=== PATIENT | female | born 1945 | race Caucasian/White ===

== ENCOUNTER 2016-08-29 12:53 | Day surgery (SDC) | payer MEDICARE ==
[~2016-08-29] VITALS: Ht 165.1 cm; Wt 74.8 kg
[~2016-08-29 12:53] MED LIST: ALAVERT10 MG OR; ALBUTEROL S2.5 MG/.5; AMLOD/BENAZP1 CA3 PO; AMOX/K CLAV875 M1 PO; AMOXICILLIN/CL875 MG PO; AMOXICILLIN875 MG OR; ANTI-FUNGAL12 TOP; ASPIRIN 81 LOW81 MG PO; AUGMENTIN875TAB OR; BACLOFEN10 MG PO; BENZONATATE200 MG PO; CARAFATE1 GM PO; CIPROFLOXACN500 MG PO; DIPHENHYDRAM25 M4 PO; EQ ACETAMINOPH500 MG; EX-LAX OR; FLEXERIL5 M1 PO; FLONASE NASAL50 MCG; LEVAQUIN500 MG PO; LEVOTHYROXIN25 MC1 PO; LOSARTAN POT100 MG PO; MEDDOSEPAK OR; MEDDOSEPAK PO; MELOXICAM7.5 MG PO; METO50TA52 PO; MULTI FOR HER 50+; MULTI VIT PO; NAPRELAN375 MG PO; NAPROSYN375 MG PO; NAPROSYN500 MG PO; OMEPRAZOLE40 MG; OMEPRAZOLE40 MG PO; OMNICEF300 M1 OR; OMNICEF300 MG OR; PANTOPRAZOLE SO40 MG PO; PAROXETINE20 MG PO; PREDNISONE10 MG PO; PRILOSEC40 MG PO; ROCEPHIN 1 GM1 GM IM; SPIRIVA IN; SPIRIVA INH; SYMBICORT1 AE1; SYMBICORT1 AE1 IN; TRAMADOL HCL50 MG PO; ULTRAM50 MG OR; VALIUM5 MG PO; VENTOLIN HF1 IN; ZITHROMAX250 MG PO; ZITHROMAX500 MG PO; ZYRTEC10 MG PO
[2016-08-29 14:46] VITALS: BP 150/65
== END 2016-08-29 15:05 | disposition home or self-care (01) ==
LOC: ENDO 12:53 → ORM 14:15 → ENDO 14:15
PROVIDERS: ATTEND Internal Medicine Gastroenterology
PROC: 0DBE8ZX Excision of Large Intestine, Via Natural or Artificial Opening Endoscopic, Diagnostic (ICD-10-PCS; principal; 2016-08-29)
DX: R14.0 Abdominal distension (gaseous) (principal); R19.7 Diarrhea, unspecified; K57.30 Diverticulosis of large intestine without perforation or abscess without bleeding; R11.2 Nausea with vomiting, unspecified; K64.4 Residual hemorrhoidal skin tags; K64.8 Other hemorrhoids; K21.9 Gastro-esophageal reflux disease without esophagitis; I10 Essential (primary) hypertension; J44.9 Chronic obstructive pulmonary disease, unspecified; E03.9 Hypothyroidism, unspecified; Z86.010 Personal history of colon polyps

== ENCOUNTER 2017-07-18 18:48 | Emergency (ER) | payer MEDICARE ==
[~2017-07-18] VITALS: Ht 165.1 cm; Wt 74.0 kg
--- NOTE | 2017-07-18 19:36 | NUR ---
BREATHING TREATMENT GIVEN ORDERED. BREATHING TECH. FOR GOOD DEPOSITION TO THE LUNGS.
[2017-07-18 19:51] LABS: HEMATOCRIT 42.9 % (37.0-47.0); HEMOGLOBIN 13.7 g/dl (12.0-16.0); IMMATURE GRANULOCYTES 0.4 % (0.0-1.0); MEAN CELL VOLUME 93.9 fL CALC (80.0-100.0); MEAN CORPUSCULAR HGB CONC 31.9 g/L CALC (32.0-36.0); NEUT# 6.01 thou/uL (2.00-7.15); RED BLOOD COUNT 4.57 mill/uL (4.20-5.60); RED CELL DISTRI WIDTH 13.3 % (11.5-15.5)
[2017-07-18 20:09] LABS: ALBUMIN 3.8 g/dL (3.2-5.0); ALKALINE PHOSPHATASE 56 u/l (38-126); ANION GAP 18 (6-22 (CALC)); BILIRUBIN, TOTAL 0.5 mg/dL (0.0-1.4); BUN 14 mg/dL (8-23); BUN/CREATININE RATIO 19 (12-20 (CALC)); CARBON DIOXIDE 22 mmol/l (22-30); CHLORIDE 102 mmol/l (95-108); CREATININE 0.8 mg/dL (0.5-1.0); GFR > 60 ML/MIN (>=60 (CALC)); GFR FOR AFR.AMER. > 60 ML/MIN (>=60 (CALC)); POTASSIUM 4.3 mmol/l (3.5-5.1); SGOT/AST 29 u/l (9-36); SGPT/ALT 30 u/l (11-66); SODIUM 138 mmol/l (137-146); TOTAL PROTEIN 7.3 g/dL (6.3-8.2)
[2017-07-18 20:21] LABS: MYOGLOBIN 77 ng/mL (0 - 62)
[2017-07-18 20:24] LABS: INFLUENZA A NONE DETECTED (NONE DETECT); INFLUENZA B NONE DETECTED (NONE DETECT)
[2017-07-18] MEDS ORDERED: CEPHALEXIN500 MG PO (21:00)
[2017-07-18] MEDS ORDERED: ALBUTEROL SUL0.083 % IN (21:00)
[2017-07-18 21:28] VITALS: BP 159/81
== END 2017-07-18 21:27 | disposition home or self-care (01) ==
LOC: ED 18:48
PROVIDERS: Emergency Medicine
DX: J06.9 Acute upper respiratory infection, unspecified (principal); J44.9 Chronic obstructive pulmonary disease, unspecified; I10 Essential (primary) hypertension; R06.02 Shortness of breath

== ENCOUNTER 2017-10-27 00:55 | Inpatient (IN) | payer MEDICARE ==
[~2017-10-27] VITALS: Ht 162.6 cm; Wt 73.4 kg
[~2017-10-27 00:55] MED LIST changes: +ALBUTEROL SUL0.083 % IN; +CEPHALEXIN500 MG PO
[2017-10-27 01:57] LABS: HEMATOCRIT 40.9 % (37.0-47.0); HEMOGLOBIN 13.1 g/dl (12.0-16.0); IMMATURE GRANULOCYTES 0.4 % (0.0-5.0); MEAN CELL VOLUME 94.2 fL CALC (80.0-100.0); MEAN CORPUSCULAR HGB 30.2 pG CALC (26.0-32.0); NEUT# 6.65 thou/uL (2.00-7.15); RED BLOOD COUNT 4.34 mill/uL (4.20-5.60); RED CELL DISTRI WIDTH 12.8 % (11.5-15.5)
[2017-10-27 02:10] LABS: ALBUMIN 3.9 g/dL (3.2-5.0); ALKALINE PHOSPHATASE 60 u/l (38-126); ANION GAP 12 (6-22 (CALC)); BILIRUBIN, TOTAL 0.4 mg/dL (0.0-1.4); BUN 10 mg/dL (8-23); BUN/CREATININE RATIO 15 (12-20 (CALC)); CARBON DIOXIDE 27 mmol/l (22-30); CHLORIDE 108 mmol/l (95-108); CREATININE 0.6 mg/dL (0.5-1.0); GFR > 60 ML/MIN (>=60 (CALC)); GFR FOR AFR.AMER. > 60 ML/MIN (>=60 (CALC)); LIPASE 128 u/l (23-300); POTASSIUM 3.9 mmol/l (3.5-5.1); SGOT/AST 34 u/l (9-36); SGPT/ALT 22 u/l (11-66); SODIUM 143 mmol/l (137-146); TOTAL PROTEIN 7.3 g/dL (6.3-8.2)
[2017-10-27 02:23] LABS: MYOGLOBIN 48 ng/mL (0 - 62)
[2017-10-27 05:08] VITALS: BP 138/87
[2017-10-27 07:58] VITALS: BP 119/76
[2017-10-27 11:53] VITALS: BP 109/71
[2017-10-27 15:02] VITALS: BP 140/83
[2017-10-27 19:17] VITALS: BP 171/97
[2017-10-27 21:05] LABS: URINE BILIRUBIN - DIPSTICK NEGATIVE (NEGATIVE); URINE BLOOD DIPSTICK NEGATIVE (NEGATIVE); URINE COLOR YELLOW; URINE GLUCOSE - DIPSTICK NEGATIVE (NEGATIVE); URINE KETONE NEGATIVE (NEGATIVE); URINE LEUK ESTERASE NEGATIVE (NEGATIVE); URINE NITRITE - DIPSTICK NEGATIVE (Negative); URINE PROTEIN - DIPSTICK NEGATIVE (NEG-TRACE); URINE SPECIFIC GRAVITY <=1.005; URINE UROBILINOGEN - DIPSTICK 0.2 E.U./dL (0.2)
[2017-10-27 21:06] LABS: URINE CLARITY CLEAR
[2017-10-28] VITALS (17 sets, daily range): BP systolic 95–193; BP diastolic 71–101
[2017-10-29 02:30] VITALS: BP 135/77
[2017-10-29 05:16] LABS: HEMATOCRIT 41.3 % (37.0-47.0); MEAN CELL VOLUME 94.3 fL CALC (80.0-100.0); MEAN CORPUSCULAR HGB 29.7 pG CALC (26.0-32.0); MEAN CORPUSCULAR HGB CONC 31.5 g/L CALC (32.0-36.0); RED BLOOD COUNT 4.38 mill/uL (4.20-5.60); RED CELL DISTRI WIDTH 13.2 % (11.5-15.5)
[2017-10-29 05:29] LABS: ANION GAP 13 (6-22 (CALC)); BUN 17 mg/dL (8-23); BUN/CREATININE RATIO 25 (12-20 (CALC)); CARBON DIOXIDE 26 mmol/l (22-30); CHLORIDE 107 mmol/l (95-108); CREATININE 0.7 mg/dL (0.5-1.0); GFR > 60 ML/MIN (>=60 (CALC)); GFR FOR AFR.AMER. > 60 ML/MIN (>=60 (CALC)); POTASSIUM 4.6 mmol/l (3.5-5.1); SODIUM 141 mmol/l (137-146)
[2017-10-29 07:00] VITALS: BP 182/95
[2017-10-29 14:30] VITALS: BP 140/82
[2017-10-29 16:00] VITALS: BP 165/93
[2017-10-29] MEDS ORDERED: DILTIAZEM HCL180 MG PO (17:39)
[2017-10-29] MEDS ORDERED: PREDNISONE10 MG PO (17:39)
[2017-10-29] MEDS ORDERED: ELIQUIS5 MG PO (17:40)
[2017-10-29] MEDS ORDERED: DOXYCYCL HYC100 MG PO (17:41)
== END 2017-10-29 18:30 | disposition home or self-care (01) | DRG 308 ==
LOC: ED 00:55 → ED-I 02:34 → ED 02:48 → MS2 02:49 → ICU 10-28 00:50
PROVIDERS: Emergency Medicine; ADMIT Internal Medicine; ATTEND Internal Medicine
DX: I48.0 Paroxysmal atrial fibrillation (principal); J96.21 Acute and chronic respiratory failure with hypoxia; J44.1 Chronic obstructive pulmonary disease with (acute) exacerbation; I16.0 Hypertensive urgency; I10 Essential (primary) hypertension; K21.9 Gastro-esophageal reflux disease without esophagitis; F41.9 Anxiety disorder, unspecified; G47.00 Insomnia, unspecified; Z87.891 Personal history of nicotine dependence
CPT/HCPCS: J1650

== ENCOUNTER → 2018-01-13 | Outpatient (REF) | payer MEDICARE ==
[~2018-01-13] MED LIST changes: +DILTIAZEM HCL180 MG PO; +DOXYCYCL HYC100 MG PO; +ELIQUIS5 MG PO
[2018-01-13 12:49] LABS: URINE BILIRUBIN - DIPSTICK NEGATIVE (NEGATIVE); URINE BLOOD DIPSTICK TRACE-LYSED (NEGATIVE); URINE COLOR YELLOW; URINE GLUCOSE - DIPSTICK NEGATIVE (NEGATIVE); URINE KETONE NEGATIVE (NEGATIVE); URINE LEUK ESTERASE NEGATIVE (Negative); URINE NITRITE - DIPSTICK NEGATIVE (Negative); URINE PH 6.5 (4.5-8.0); URINE PROTEIN - DIPSTICK NEGATIVE (NEG-TRACE); URINE SPECIFIC GRAVITY 1.015; URINE UROBILINOGEN - DIPSTICK 0.2 E.U./dL (0.2)
[2018-01-13 12:54] LABS: ANION GAP 12 (6-22 (CALC)); BUN 17 mg/dL (8-23); BUN/CREATININE RATIO 22 (12-20 (CALC)); CARBON DIOXIDE 29 mmol/l (22-30); CHLORIDE 104 mmol/l (95-108); CREATININE 0.8 mg/dL (0.5-1.0); GFR > 60 ML/MIN (>=60 (CALC)); GFR FOR AFR.AMER. > 60 ML/MIN (>=60 (CALC)); SODIUM 141 mmol/l (137-146); URINE CLARITY CLEAR
== END | disposition home or self-care (01) ==
LOC: CT 11:59
PROVIDERS: ATTEND Internal Medicine
DX: R10.32 Left lower quadrant pain (principal); I10 Essential (primary) hypertension; R10.9 Unspecified abdominal pain
CPT/HCPCS: Q9967

== ENCOUNTER 2018-03-03 05:57 | Day surgery (SDC) | payer MEDICARE ==
[~2018-03-03] VITALS: Ht 162.6 cm; Wt 69.9 kg
[~2018-03-03 05:57] MED LIST changes: +METOPROL TAR25 MG PO; +PROTONIX40 M2 PO; +VITAMIN D PO; +WARFARIN5 MG PO
[2018-03-03] MEDS ORDERED: MOTRIN800 MG PO (08:50)
[2018-03-03 09:09] VITALS: BP 148/77
== END 2018-03-03 09:10 | disposition home or self-care (01) ==
LOC: ORM 05:57
PROVIDERS: ATTEND Surgery
PROC: 0YU60JZ Supplement Left Inguinal Region with Synthetic Substitute, Open Approach (ICD-10-PCS; principal; 2018-03-03)
DX: K40.90 Unilateral inguinal hernia, without obstruction or gangrene, not specified as recurrent (principal); J44.9 Chronic obstructive pulmonary disease, unspecified; I48.91 Unspecified atrial fibrillation; Z79.01 Long term (current) use of anticoagulants
CPT/HCPCS: C9290

== ENCOUNTER → 2018-06-23 | Outpatient (REF) | payer MEDICARE ==
[~2018-06-23] MED LIST changes: +MOTRIN800 MG PO
== END | disposition home or self-care (01) ==
LOC: DI 13:42
PROVIDERS: ATTEND Orthopaedic Surgery
DX: M25.561 Pain in right knee (principal); M54.5 Low back pain; M17.11 Unilateral primary osteoarthritis, right knee; M51.36 Other intervertebral disc degeneration, lumbar region

== ENCOUNTER 2018-08-02 15:18 | Inpatient (IN) | payer MEDICARE ==
[~2018-08-02] VITALS: Ht 162.6 cm; Wt 68.5 kg
[~2018-08-02 15:18] MED LIST changes: +AMLODIPINE2.5 MG PO; +BENADRYL 25MG C25 MG PO; +FLONASE AL50 MCG/ACT
[2018-08-09] VITALS (15 sets, daily range): BP systolic 92–153; BP diastolic 46–90
[2018-08-09 07:37] LABS: ACT PARTIAL THROMBO TIME 27.3 SECONDS (20.0-32.5); INTERNATIONAL NORMALIZED RATIO 0.9 RATIO (0.7-1.3)
[2018-08-09 07:38] LABS: PROTHROMBIN TIME 9.9 SECONDS (9.0-12.5)
[2018-08-09 16:34] LABS: HEMATOCRIT 37.8 % (37.0-47.0); HEMOGLOBIN 11.6 g/dl (12.0-16.0); IMMATURE GRANULOCYTES 0.6 % (0.0-5.0); MEAN CELL VOLUME 96.4 fL CALC (80.0-100.0); MEAN CORPUSCULAR HGB 29.6 pG CALC (26.0-32.0); MEAN CORPUSCULAR HGB CONC 30.7 g/L CALC (32.0-36.0); NEUT# 10.1 thou/uL (2.00-7.15); RED BLOOD COUNT 3.92 mill/uL (4.20-5.60)
[2018-08-09 16:52] LABS: ANION GAP 11 (6-22 (CALC)); BUN 16 mg/dL (8-23); BUN/CREATININE RATIO 21 (12-20 (CALC)); CARBON DIOXIDE 26 mmol/l (22-30); CHLORIDE 108 mmol/l (95-108); CREATININE 0.8 mg/dL (0.5-1.0); GFR > 60 ML/MIN (>=60 (CALC)); GFR FOR AFR.AMER. > 60 ML/MIN (>=60 (CALC)); POTASSIUM 4.4 mmol/l (3.5-5.1); SODIUM 141 mmol/l (137-146)
[2018-08-10] VITALS (10 sets, daily range): BP systolic 87–134; BP diastolic 46–60
[2018-08-10 06:13] LABS: HEMATOCRIT 38.5 % (37.0-47.0); HEMOGLOBIN 11.5 g/dl (12.0-16.0); IMMATURE GRANULOCYTES 0.6 % (0.0-5.0); MEAN CELL VOLUME 99.7 fL CALC (80.0-100.0); MEAN CORPUSCULAR HGB 29.8 pG CALC (26.0-32.0); MEAN CORPUSCULAR HGB CONC 29.9 g/L CALC (32.0-36.0); NEUT# 9.48 thou/uL (2.00-7.15); RED BLOOD COUNT 3.86 mill/uL (4.20-5.60); RED CELL DISTRI WIDTH 14.4 % (11.5-15.5)
[2018-08-10 06:33] LABS: ALBUMIN 3.4 g/dL (3.2-5.0); BILIRUBIN, TOTAL 0.4 mg/dL (0.0-1.4); CREATININE 1.1 mg/dL (0.5-1.0); MAGNESIUM 1.7 mg/dL (1.6-2.3); POTASSIUM 4.8 mmol/l (3.5-5.1); TOTAL PROTEIN 6.2 g/dL (6.3-8.2)
[2018-08-11 05:54] LABS: HEMATOCRIT 33.9 % (37.0-47.0); HEMOGLOBIN 10.5 g/dl (12.0-16.0); IMMATURE GRANULOCYTES 0.6 % (0.0-5.0); MEAN CELL VOLUME 97.7 fL CALC (80.0-100.0); MEAN CORPUSCULAR HGB 30.3 pG CALC (26.0-32.0); NEUT# 8.73 thou/uL (2.00-7.15); RED BLOOD COUNT 3.47 mill/uL (4.20-5.60); RED CELL DISTRI WIDTH 14.1 % (11.5-15.5)
[2018-08-11 06:11] LABS: PROTHROMBIN TIME 14.3 SECONDS (9.0-12.5)
[2018-08-11 06:12] LABS: INTERNATIONAL NORMALIZED RATIO 1.4 RATIO (0.7-1.3)
[2018-08-11 06:19] LABS: BILIRUBIN, TOTAL 0.5 mg/dL (0.0-1.4); CREATININE 1.1 mg/dL (0.5-1.0); MAGNESIUM 1.8 mg/dL (1.6-2.3); POTASSIUM 4.6 mmol/l (3.5-5.1); TOTAL PROTEIN 5.6 g/dL (6.3-8.2)
[2018-08-11 07:30] VITALS: BP 125/58
[2018-08-11 12:31] VITALS: BP 100/46
[2018-08-11 15:30] VITALS: BP 116/55
[2018-08-11 17:28] LABS: URINE BILIRUBIN - DIPSTICK NEGATIVE (NEGATIVE); URINE BLOOD DIPSTICK TRACE-LYSED (NEGATIVE); URINE COLOR YELLOW; URINE GLUCOSE - DIPSTICK NEGATIVE (NEGATIVE); URINE KETONE NEGATIVE (NEGATIVE); URINE LEUK ESTERASE NEGATIVE (Negative); URINE NITRITE - DIPSTICK NEGATIVE (Negative); URINE PH 5.5 (4.5-8.0); URINE PROTEIN - DIPSTICK NEGATIVE (NEG-TRACE); URINE SPECIFIC GRAVITY >=1.030; URINE UROBILINOGEN - DIPSTICK 0.2 E.U./dL (0.2)
[2018-08-11 17:31] LABS: URINE CLARITY CLEAR
[2018-08-11 20:00] VITALS: BP 120/57
[2018-08-12] VITALS: BP 117/56
[2018-08-12 04:00] VITALS: BP 133/58
[2018-08-12 05:22] LABS: HEMATOCRIT 34.1 % (37.0-47.0); HEMOGLOBIN 10.6 g/dl (12.0-16.0)
[2018-08-12 05:39] LABS: INTERNATIONAL NORMALIZED RATIO 2.6 RATIO (0.7-1.3); PROTHROMBIN TIME 26.6 SECONDS (9.0-12.5)
[2018-08-12 05:55] LABS: ALBUMIN 3.3 g/dL (3.2-5.0); BUN 17 mg/dL (8-23); CARBON DIOXIDE 25 mmol/l (22-30); CHLORIDE 99 mmol/l (95-108); CREATININE 0.8 mg/dL (0.5-1.0); GFR > 60 ML/MIN (>=60 (CALC)); GFR FOR AFR.AMER. > 60 ML/MIN (>=60 (CALC)); SODIUM 133 mmol/l (137-146)
[2018-08-12 07:50] VITALS: BP 118/59
[2018-08-12 12:30] VITALS: BP 117/58
[2018-08-12 16:00] VITALS: BP 151/59
[2018-08-12 20:00] VITALS: BP 164/63
[2018-08-13] VITALS: BP 131/67
[2018-08-13 04:00] VITALS: BP 148/65
[2018-08-13 05:19] LABS: HEMATOCRIT 32.5 % (37.0-47.0); HEMOGLOBIN 9.8 g/dl (12.0-16.0); IMMATURE GRANULOCYTES 0.7 % (0.0-5.0); MEAN CELL VOLUME 98.5 fL CALC (80.0-100.0); MEAN CORPUSCULAR HGB 29.7 pG CALC (26.0-32.0); MEAN CORPUSCULAR HGB CONC 30.2 g/L CALC (32.0-36.0); NEUT# 8.87 thou/uL (2.00-7.15); RED BLOOD COUNT 3.3 mill/uL (4.20-5.60); RED CELL DISTRI WIDTH 13.9 % (11.5-15.5)
[2018-08-13 05:40] LABS: ALBUMIN 2.9 g/dL (3.2-5.0); ALKALINE PHOSPHATASE 41 u/l (38-126); ANION GAP 12 (6-22 (CALC)); BILIRUBIN, TOTAL 0.4 mg/dL (0.0-1.4); BUN 17 mg/dL (8-23); BUN/CREATININE RATIO 21 (12-20 (CALC)); CARBON DIOXIDE 26 mmol/l (22-30); CHLORIDE 104 mmol/l (95-108); CREATININE 0.8 mg/dL (0.5-1.0); GFR > 60 ML/MIN (>=60 (CALC)); GFR FOR AFR.AMER. > 60 ML/MIN (>=60 (CALC)); INTERNATIONAL NORMALIZED RATIO 4.7 RATIO (0.7-1.3); POTASSIUM 4.2 mmol/l (3.5-5.1); PROTHROMBIN TIME 48.9 SECONDS (9.0-12.5); SGOT/AST 26 u/l (9-36); SODIUM 138 mmol/l (137-146); TOTAL PROTEIN 5.5 g/dL (6.3-8.2)
[2018-08-13 05:46] LABS: MAGNESIUM 2.5 mg/dL (1.6-2.3)
[2018-08-13 07:00] VITALS: BP 149/80
[2018-08-13] MEDS ORDERED: Levaquin PO (11:43)
[2018-08-13] MEDS ORDERED: PREDNISONE10 MG PO (11:44)
[2018-08-13 14:00] VITALS: BP 132/62
== END 2018-08-13 15:45 | DRG 469 ==
LOC: ICU 08-09 06:13 → MS2 08-09 06:13 → ICU 08-09 17:15
PROVIDERS: Internal Medicine Nephrology; ADMIT Orthopaedic Surgery; ATTEND Orthopaedic Surgery
PROC: 0SRC0J9 Replacement of Right Knee Joint with Synthetic Substitute, Cemented, Open Approach (ICD-10-PCS; principal; 2018-08-09)
DX: M17.11 Unilateral primary osteoarthritis, right knee (principal); J18.9 Pneumonia, unspecified organism; N17.9 Acute kidney failure, unspecified; E87.1 Hypo-osmolality and hyponatremia; J44.1 Chronic obstructive pulmonary disease with (acute) exacerbation; J44.0 Chronic obstructive pulmonary disease with (acute) lower respiratory infection; I10 Essential (primary) hypertension; I48.0 Paroxysmal atrial fibrillation; K21.9 Gastro-esophageal reflux disease without esophagitis; F41.9 Anxiety disorder, unspecified; R00.8 Other abnormalities of heart beat; I49.3 Ventricular premature depolarization; I95.9 Hypotension, unspecified; R00.1 Bradycardia, unspecified; T40.2X5A Adverse effect of other opioids, initial encounter; T44.7X5A Adverse effect of beta-adrenoreceptor antagonists, initial encounter; D64.9 Anemia, unspecified; Y95 Nosocomial condition; Z79.01 Long term (current) use of anticoagulants; Z87.891 Personal history of nicotine dependence

== ENCOUNTER 2019-01-10 18:08 | Emergency (ER) | payer MEDICARE ==
[~2019-01-10] VITALS: Ht 162.6 cm; Wt 63.2 kg
[~2019-01-10 18:08] MED LIST changes: -AMLODIPINE2.5 MG PO; +Levaquin PO; +NORVASC5 M1 PO
[2019-01-10 19:55] LABS: HEMATOCRIT 40.6 % (37.0-47.0); HEMOGLOBIN 12.5 g/dl (12.0-16.0); IMMATURE GRANULOCYTES 0.6 % (0.0-5.0); MEAN CELL VOLUME 90.4 fL CALC (80.0-100.0); MEAN CORPUSCULAR HGB 27.8 pG CALC (26.0-32.0); MEAN CORPUSCULAR HGB CONC 30.8 g/L CALC (32.0-36.0); NEUT# 6.71 thou/uL (2.00-7.15); RED BLOOD COUNT 4.49 mill/uL (4.20-5.60); RED CELL DISTRI WIDTH 14.1 % (11.5-15.5)
[2019-01-10 20:12] LABS: INTERNATIONAL NORMALIZED RATIO 3.7 RATIO (0.7-1.3); PROTHROMBIN TIME 36.7 SECONDS (9.0-12.5)
[2019-01-10 20:17] LABS: ALBUMIN 3.8 g/dL (3.2-5.0); BILIRUBIN, TOTAL 0.4 mg/dL (0.0-1.4); CREATININE 1.1 mg/dL (0.5-1.0); POTASSIUM 3.5 mmol/l (3.5-5.1); TOTAL PROTEIN 6.8 g/dL (6.3-8.2)
[2019-01-10] MEDS ORDERED: PROAIR HFA108 MCG/AC IN (20:44)
[2019-01-11 01:00] VITALS: BP 123/67
== END 2019-01-11 01:38 ==
LOC: ED 18:08
DX: J44.1 Chronic obstructive pulmonary disease with (acute) exacerbation (principal); R91.8 Other nonspecific abnormal finding of lung field; J90 Pleural effusion, not elsewhere classified; I11.0 Hypertensive heart disease with heart failure; I50.9 Heart failure, unspecified

== ENCOUNTER 2019-01-25 17:30 | Emergency (ER) | payer MEDICARE ==
[~2019-01-25] VITALS: Ht 162.6 cm; Wt 59.0 kg
[~2019-01-25 17:30] MED LIST changes: +PROAIR HFA108 MCG/AC IN
[2019-01-25 18:48] LABS: HEMATOCRIT 38.4 % (37.0-47.0); HEMOGLOBIN 12.2 g/dl (12.0-16.0); IMMATURE GRANULOCYTES 3.9 % (0.0-5.0); MEAN CELL VOLUME 88.5 fL CALC (80.0-100.0); MEAN CORPUSCULAR HGB 28.1 pG CALC (26.0-32.0); MEAN CORPUSCULAR HGB CONC 31.8 g/L CALC (32.0-36.0); NEUT# 11.62 thou/uL (2.00-7.15); RED BLOOD COUNT 4.34 mill/uL (4.20-5.60); RED CELL DISTRI WIDTH 14.6 % (11.5-15.5)
[2019-01-25 19:05] LABS: ALBUMIN 3.5 g/dL (3.2-5.0); ALKALINE PHOSPHATASE 66 u/l (38-126); BILIRUBIN, TOTAL 0.5 mg/dL (0.0-1.4); BUN 16 mg/dL (8-23); BUN/CREATININE RATIO 31 (12-20 (CALC)); CHLORIDE 93 mmol/l (95-108); CREATININE 0.5 mg/dL (0.5-1.0); GFR > 60 ML/MIN (>=60 (CALC)); GFR FOR AFR.AMER. > 60 ML/MIN (>=60 (CALC)); POTASSIUM 3.8 mmol/l (3.5-5.1); SGOT/AST 53 u/l (9-36); SODIUM 129 mmol/l (137-146); TOTAL PROTEIN 6.4 g/dL (6.3-8.2)
[2019-01-25 19:06] LABS: ANION GAP 15 (6-22 (CALC)); CARBON DIOXIDE 25 mmol/l (22-30)
[2019-01-25 19:17] LABS: INTERNATIONAL NORMALIZED RATIO 10.8 RATIO (0.7-1.3); PROTHROMBIN TIME 101.4 SECONDS (9.0-12.5)
[2019-01-25] MEDS ORDERED: ROBITUSSIN AC10 ML PO (20:02)
[2019-01-25 20:55] VITALS: BP 154/72
== END 2019-01-25 20:55 | disposition home or self-care (01) ==
LOC: ED 17:30
DX: R05 Cough (principal); C34.92 Malignant neoplasm of unspecified part of left bronchus or lung; J44.9 Chronic obstructive pulmonary disease, unspecified; I10 Essential (primary) hypertension; Z99.81 Dependence on supplemental oxygen; Z79.01 Long term (current) use of anticoagulants

== ENCOUNTER 2019-02-06 22:31 | Emergency (ER) | payer MEDICARE ==
[~2019-02-06] VITALS: Ht 162.6 cm; Wt 55.0 kg
[~2019-02-06 22:31] MED LIST changes: +ROBITUSSIN AC10 ML PO
[2019-02-06 23:18] LABS: IMMATURE GRANULOCYTES 2.3 % (0.0-5.0); MEAN CORPUSCULAR HGB 28.2 pG CALC (26.0-32.0); NEUT# 7.75 thou/uL (2.00-7.15); RED BLOOD COUNT 3.01 mill/uL (4.20-5.60)
[2019-02-06 23:24] LABS: HEMATOCRIT 27.4 % (37.0-47.0); HEMOGLOBIN 8.5 g/dl (12.0-16.0)
[2019-02-06 23:38] LABS: ALBUMIN 3.3 g/dL (3.2-5.0); ALKALINE PHOSPHATASE 122 u/l (38-126); ANION GAP 14 (6-22 (CALC)); BILIRUBIN, TOTAL 0.4 mg/dL (0.0-1.4); BUN 31 mg/dL (8-23); BUN/CREATININE RATIO 33 (12-20 (CALC)); CARBON DIOXIDE 29 mmol/l (22-30); CHLORIDE 91 mmol/l (95-108); GFR 54 ML/MIN (>=60 (CALC)); GFR FOR AFR.AMER. > 60 ML/MIN (>=60 (CALC)); POTASSIUM 4.1 mmol/l (3.5-5.1); SGOT/AST 71 u/l (9-36); SODIUM 130 mmol/l (137-146); TOTAL PROTEIN 6.2 g/dL (6.3-8.2)
[2019-02-07 00:01] LABS: INTERNATIONAL NORMALIZED RATIO > 29.6 RATIO (0.7-1.3); PROTHROMBIN TIME > 300.0 SECONDS (9.0-12.5)
[2019-02-07 01:35] VITALS: BP 118/63
[2019-02-07 03:25] LABS: ACT PARTIAL THROMBO TIME > 580.0 SECONDS (20.0-32.5)
== END 2019-02-07 01:40 | disposition short-term general hospital (02) ==
LOC: ED 22:31
PROVIDERS: Emergency Medicine
DX: D68.32 Hemorrhagic disorder due to extrinsic circulating anticoagulants (principal); R04.0 Epistaxis; R23.3 Spontaneous ecchymoses; T45.515A Adverse effect of anticoagulants, initial encounter; D64.9 Anemia, unspecified; I10 Essential (primary) hypertension; J44.9 Chronic obstructive pulmonary disease, unspecified; Z99.81 Dependence on supplemental oxygen; Z79.01 Long term (current) use of anticoagulants
CPT/HCPCS: J2060